=== PATIENT | male | born 2000 | race Two or more races ===

== ENCOUNTER 2023-07-22 08:15 | Emergency (ER) | payer MEDICAID, OTHER ==
[~2023-07-22] VITALS: Ht 172.7 cm; Wt 84.3 kg
[2023-07-22 08:45] VITALS: BP 127/99; PULSE 95; RESP 12; TEMP 98.4; O2SAT 98
[2023-07-22] MEDS: ONDANSETRON HCL 4 MG/2 ML VIAL IM ONE (08:48)
[2023-07-22] MEDS ORDERED: ZOFR4T PO (09:29)
[2023-07-22] MEDS ORDERED: ACET500T58 PO (09:29)
[2023-07-22] MEDS ORDERED: NAPR-746 PO (09:29)
== END 2023-07-22 09:27 | disposition home or self-care (01) ==
LOC: ER 08:15
DX: B34.9 Viral infection, unspecified (principal)
CPT/HCPCS: 96372; 99283; J2405